=== PATIENT | male | born 1950 | race African-American/Black ===

== ENCOUNTER 2022-11-13 21:25 | Emergency (ER) | payer MEDICAID, OTHER ==
[~2022-11-13] VITALS: Ht 172.7 cm; Wt 104.0 kg
[~2022-11-13 21:25] MED LIST: ALBU2.5V13; FERR1TAB51
[2022-11-13] MEDS ORDERED: METHYLPREDNISOLONE SOD SUCC 125 MG/2 ML VIAL IV STA (21:34)
[2022-11-13] MEDS ORDERED: IPRATROPIUM BROMIDE (0.02%) 0.5MG/2.5ML NEB HHN STA (21:34)
[2022-11-13] MEDS ORDERED: ALBUTEROL (0.083%) 2.5MG/3ML NEB HHN STA (21:34)
[2022-11-13] MEDS ORDERED: LEVOFLOXACIN 750MG PREMIX 150 ML IV ONE (21:45)
[2022-11-13 22:23] LABS: CHLORIDE 102 mEq/L (98-107)
[2022-11-13 22:27] LABS: BASOPHILS % 0.8 % (0.0-2.0); EOSINOPHILS % 4.3 % (0.0-5.0); HEMATOCRIT. 37.9 % (42.0-52.0); HEMOGLOBIN. 12.2 g/dL (14.0-18.0); LYMPHOCYTES % 20.5 % (20.0-50.0); MEAN CORPUSCULAR VOLUME 80.7 fL (80.0-94.0); MEAN PLATELET VOLUME 9.4 fl (7.4-10.4); MONOCYTES % 8.9 % (2.0-8.0); NEUTROPHILS % 65.5 % (40.0-76.0); PLATELET 166 x1000/uL (130-400); RED BLOOD CELL COUNT 4.69 mill/uL (4.7-6.1); RED CELL DISTRIBUTION WIDTH 15.5 % (11.6-14.6)
[2022-11-13 23:04] LABS: PROTHROMBIN TIME 10.9 sec (9.6-11.0)
[2022-11-13 23:42] LABS: BG BASE EXCESS 4.8 mmol/L (-2.0-2.0); BG CARBOXYHEMOGLOBIN 0.6 % (0.5-1.5); BG DEOXYHEMOGLOBIN 11.8 % (0.0-5.0); BG FRACTION INSPIRED OXYGEN 100; BG HCO3 ACT 30.7 mmol/L (22.0-26.0); BG METHEMOGLOBIN 0.2 % (0.0-1.5); BG OXYGEN SATURATION 88.1 % (92.0-98.5); BG OXYHEMOGLOBIN 87.4 % (94.0-97.0); BG PCO2 50.4 mmHg (35.0-45.0); BG PH 7.402 (7.350-7.450); BG PO2 55.2 mmHg (75.0-100.0); BG SAMPLE SITE RIGHT RADIAL; BG TOTAL HEMOGLOBIN 13.2 g/dL (12.0-18.0); BG VENT MODE MASK - BIPAP
[2022-11-14] MEDS ORDERED: ALBUTEROL (0.083%) 2.5MG/3ML NEB HHN NR (01:15)
[2022-11-14] MEDS ORDERED: IPRATROPIUM BROMIDE (0.02%) 0.5MG/2.5ML NEB HHN NR (01:15)
[2022-11-14 02:52] LABS: BG BASE EXCESS 5.7 mmol/L (-2.0-2.0); BG CARBOXYHEMOGLOBIN 0.2 % (0.5-1.5); BG DEOXYHEMOGLOBIN 7.4 % (0.0-5.0); BG FRACTION INSPIRED OXYGEN 36; BG HCO3 ACT 31.5 mmol/L (22.0-26.0); BG METHEMOGLOBIN 0.1 % (0.0-1.5); BG OXYGEN SATURATION 92.6 % (92.0-98.5); BG OXYHEMOGLOBIN 92.3 % (94.0-97.0); BG PCO2 50.7 mmHg (35.0-45.0); BG PH 7.411 (7.350-7.450); BG PO2 64.3 mmHg (75.0-100.0); BG SAMPLE SITE RIGHT RADIAL; BG TOTAL HEMOGLOBIN 12.6 g/dL (12.0-18.0); BG VENT MODE NASAL CANNULA
[2022-11-14 08:30] VITALS: BP 117/79
== END 2022-11-14 08:39 | disposition short-term general hospital (02) ==
LOC: ER 21:25
DX: J44.1 Chronic obstructive pulmonary disease with (acute) exacerbation (principal); Z20.822 Contact with and (suspected) exposure to COVID-19
CPT/HCPCS: 36415; 36600; 71045; 80053; 82375; 82805; 83880; 85025; 85610; 87426; 93005; 94660; 96365; 96375; 99291; C9803; J1956; J2930

== ENCOUNTER 2024-11-24 21:10 | Inpatient (IN) | payer OTHER, MEDICAID ==
[~2024-11-24] VITALS: Ht 180.3 cm; Wt 83.0 kg
[2024-11-24 21:18] VITALS: RESP 17
[2024-11-24] MEDS ORDERED: METHYLPREDNISOLONE SOD SUCC 125MG/2ML (ACT-O-VIAL) IV STA (21:30)
[2024-11-24 21:55] LABS: BASOPHILS % 0.7 % (0.0-2.0); EOSINOPHILS % 4.3 % (0.0-5.0); HEMATOCRIT. 38.8 % (42.0-52.0); HEMOGLOBIN. 12.3 g/dL (14.0-18.0); LYMPHOCYTES % 19.5 % (20.0-50.0); MEAN CORPUSCULAR HGB CONC 31.8 g/dL (31.0-37.0); MEAN CORPUSCULAR VOLUME 81.7 fL (80.0-94.0); MEAN PLATELET VOLUME 8.9 fl (7.4-10.4); MONOCYTES % 8.4 % (2.0-8.0); NEUTROPHILS % 67.1 % (40.0-76.0); PLATELET 127 x1000/uL (130-400); RED BLOOD CELL COUNT 4.75 mill/uL (4.7-6.1); RED CELL DISTRIBUTION WIDTH 14.6 % (11.6-14.6); WHITE BLOOD COUNT 7.5 x1000/uL (4.5-11.0)
[2024-11-24 21:58] VITALS: RESP 18
[2024-11-24] MEDS: ALBUTEROL (0.083%) 2.5MG/3ML NEB HHN STA (21:58)
[2024-11-24] MEDS: IPRATROPIUM BROMIDE (0.02%) 0.5MG/2.5ML NEB HHN STA (21:58)
[2024-11-24 22:06] LABS: CARBON DIOXIDE 33 mEq/L (21-32); CHLORIDE 101 mEq/L (98-107); POTASSIUM 4.2 mEq/L (3.5-5.1); SODIUM 141 mEq/L (136-145)
[2024-11-24 22:07] LABS: CALCIUM 9.4 mg/dL (8.7-10.4)
[2024-11-24 22:12] LABS: ETHANOL BLOOD < 10 mg/dL (<10); GLUCOSE 109 mg/dL (70-105); UREA NITROGEN BLOOD 18 mg/dL (9-23)
[2024-11-24 22:13] LABS: TROPONIN I HIGH SENSITIVITY 5 ng/L (3.0-53)
[2024-11-24] MEDS: METHYLPREDNISOLONE SOD SUCC 125MG/2ML (ACT-O-VIAL) IV NR (23:56)
[2024-11-25] VITALS (8 sets, daily range): BP systolic 103–126; BP diastolic 70–109; PULSE 70–99; RESP 16–21; TEMP 36.4–36.9; O2SAT 96–100
[2024-11-25] MEDS: LEVOFLOXACIN 750MG PREMIX 150 ML IV NR (00:12)
[2024-11-25 02:03] LABS: BG BASE EXCESS 4.3 mmol/L (-2.0-3.0); BG CARBOXYHEMOGLOBIN 0.4 % (0.5-1.5); BG DEOXYHEMOGLOBIN 1.9 % (0.0-5.0); BG FRACTION INSPIRED OXYGEN 50; BG HCO3 ACT 30.7 mmol/L (21.0-28.0); BG METHEMOGLOBIN 0.3 % (0.5-1.5); BG OXYGEN SATURATION 98.1 % (94.0-98.0); BG OXYHEMOGLOBIN 97.4 % (94.0-98.0); BG PCO2 53.5 mmHg (35.0-48.0); BG PH 7.376 (7.350-7.450); BG PO2 109.3 mmHg (83.0-108.0); BG SAMPLE SITE LEFT BRACHIAL; BG TOTAL HEMOGLOBIN 12.4 g/dL (13.5-17.5); BG VENT MODE MASK - BIPAP
[2024-11-25 07:44] LABS: *AMPHETAMINES SCREEN URINE NEGATIVE (NEGATIVE); *BARBITURATES SCREEN URINE NEGATIVE (NEGATIVE); *BENZODIAZEPINES SCREEN URINE NEGATIVE (NEGATIVE); *COCAINE SCREEN URINE NEGATIVE (NEGATIVE); CANNABINOID URINE SCREEN NEGATIVE (NEGATIVE); ECSTASY MDMA SCREEN URINE NEGATIVE (NEGATIVE); METHADONE URINE SCREEN NEGATIVE (NEGATIVE); OPIATES URINE SCREEN PRESUMPTIVE POSITIVE (NEGATIVE); PHENCYCLIDINE URINE SCREEN NEGATIVE (NEGATIVE)
[2024-11-25] MEDS ORDERED: DOCUSATE SODIUM 100MG CAPSULE PO PRN (10:00)
[2024-11-25] MEDS ORDERED: GUAIFENESIN 200MG/10ML SUGAR FREE UDC PO PRN (10:00)
[2024-11-25] MEDS ORDERED: IPRATROPIUM/ALBUTEROL 0.5-3(2.5)MG/3ML NEB HHN PRN (10:00)
[2024-11-25] MEDS ORDERED: MAGNESIUM/ALUMINUM HYDROXIDE/SIMETHICONE 30ML UDC PO PRN (10:00)
[2024-11-25] MEDS ORDERED: CLONIDINE 0.1MG TABLET PO PRN (10:00)
[2024-11-25] MEDS ORDERED: ACETAMINOPHEN 325MG TABLET PO PRN (10:00)
[2024-11-25] MEDS ORDERED: DIPHENHYDRAMINE 50MG/ML VIAL IV PRN (10:00)
[2024-11-25] MEDS ORDERED: ONDANSETRON HCL 4MG/2ML INJ IV PRN (10:00)
[2024-11-25] MEDS: AMLODIPINE 5MG TABLET PO SCH (11:35)
[2024-11-25] MEDS: TAMSULOSIN HCL 0.4MG SR CAPSULE PO SCH (11:36)
[2024-11-25] MEDS: AZITHROMYCIN 500MG/250ML 250 ML IV SCH (11:37)
[2024-11-25] MEDS ORDERED: METHYLPREDNISOLONE SOD SUCC 125MG/2ML (ACT-O-VIAL) IV SCH (14:00)
[2024-11-25] MEDS: IPRATROPIUM/ALBUTEROL 0.5-3(2.5)MG/3ML NEB HHN SCH (14:36)
[2024-11-25] MEDS ORDERED: BUDE10.26 INH (17:01)
[2024-11-25] MEDS ORDERED: AMLO5TAB88 PO (17:01)
[2024-11-25] MEDS ORDERED: ASPI-1497 PO (17:01)
[2024-11-25] MEDS ORDERED: IPRA3AMP31 IH (17:01)
[2024-11-25] MEDS ORDERED: TAMS-54 PO (17:01)
[2024-11-25] MEDS ORDERED: ALBU2.5V13 IH (17:01)
[2024-11-25] MEDS ORDERED: OMEP20CA14 PO (17:01)
[2024-11-25] MEDS ORDERED: ATOR40TA70 PO (17:01)
[2024-11-25] MEDS ORDERED: HYDR-4001 PO (17:01)
[2024-11-25 18:01] LABS: CREATINE KINASE 81 IU/L (46-171)
[2024-11-25 18:09] LABS: TROPONIN I HIGH SENSITIVITY < 4 ng/L (3.0-53)
[2024-11-25] MEDS: PANTOPRAZOLE SODIUM 40 MG/VIAL IV SCH (18:32)
[2024-11-25] MEDS: ATORVASTATIN CALCIUM 40MG TABLET PO SCH (20:26)
[2024-11-25] MEDS: BUDESONIDE 0.5MG/2ML NEB HHN SCH (21:40)
[2024-11-25 23:12] LABS: CREATINE KINASE 79 IU/L (46-171)
[2024-11-25 23:13] LABS: CREATINE KINASE MB FRACTION 2.3 ng/mL (0.5-3.6); TROPONIN I HIGH SENSITIVITY 5 ng/L (3.0-53)
[2024-11-26] VITALS (12 sets, daily range): BP systolic 92–118; BP diastolic 70–100; PULSE 67–95; RESP 14–22; TEMP 36.3–36.6; O2SAT 90–100
[2024-11-26] MEDS: ACETAMINOPHEN 325MG TABLET PO PRN (03:43)
[2024-11-26 06:45] LABS: CARBON DIOXIDE 31 mEq/L (21-32); CHLORIDE 102 mEq/L (98-107); POTASSIUM 3.9 mEq/L (3.5-5.1); SODIUM 141 mEq/L (136-145)
[2024-11-26 06:46] LABS: CALCIUM 9.7 mg/dL (8.7-10.4)
[2024-11-26 06:47] LABS: BASOPHILS % 0.3 % (0.0-2.0); EOSINOPHILS % 1.7 % (0.0-5.0); HEMATOCRIT. 39.5 % (42.0-52.0); HEMOGLOBIN. 12.4 g/dL (14.0-18.0); LYMPHOCYTES % 12.2 % (20.0-50.0); MEAN CORPUSCULAR HEMOGLOBIN 26.1 pg (28.0-32.0); MEAN CORPUSCULAR HGB CONC 31.5 g/dL (31.0-37.0); MEAN CORPUSCULAR VOLUME 82.9 fL (80.0-94.0); MEAN PLATELET VOLUME 9.4 fl (7.4-10.4); MONOCYTES % 10.6 % (2.0-8.0); NEUTROPHILS % 75.2 % (40.0-76.0); PLATELET 121 x1000/uL (130-400); RED BLOOD CELL COUNT 4.76 mill/uL (4.7-6.1); RED CELL DISTRIBUTION WIDTH 14.8 % (11.6-14.6); WHITE BLOOD COUNT 9.2 x1000/uL (4.5-11.0)
[2024-11-26 06:51] LABS: CREATININE 0.8 mg/dL (0.6-1.3); GLUCOSE 103 mg/dL (70-105); TRIGLYCERIDE 46 mg/dL (0-150); UREA NITROGEN BLOOD 16 mg/dL (9-23)
[2024-11-26 06:52] LABS: CHOLESTEROL 119 mg/dL (<200); LDL CHOLESTEROL 52 mg/dL (5-100); T4 FREE 1.04 ng/dL (0.89-1.76)
[2024-11-26 06:53] LABS: HDL CHOLESTEROL 48 mg/dL (>55); THYROID STIMULATING HORMONE 0.93 uIU/mL (0.55-4.78)
[2024-11-26] MEDS: ENOXAPARIN 40MG/0.4ML SYR SUBCUT SCH (09:20)
[2024-11-26] MEDS: ASPIRIN 81MG EC TABLET PO SCH (09:20)
[2024-11-27] MEDS ORDERED: FAMOTIDINE 20MG/2ML VIAL IV SCH (09:00)
[2024-11-27] MEDS ORDERED: AZITHROMYCIN 500 MG TABLET PO SCH (09:00)
== END 2024-11-26 19:19 | disposition short-term general hospital (02) | DRG 189 ==
LOC: ER 21:10 → EDBEDREQSVC 11-25 05:33 → EDBEDREQ 11-25 05:33 → EDBEDREQTM 11-25 05:33 → ENRESERV 11-25 06:17 → 5EST 11-25 08:38
PROVIDERS: ADMIT Internal Medicine; ATTEND Internal Medicine
PROC: 5A09357 Assistance with Respiratory Ventilation, Less than 24 Consecutive Hours, Continuous Positive Airway Pressure (ICD-10-PCS; principal; 2024-11-25)
DX: J96.02 Acute respiratory failure with hypercapnia (principal); J44.1 Chronic obstructive pulmonary disease with (acute) exacerbation; E78.00 Pure hypercholesterolemia, unspecified; J96.01 Acute respiratory failure with hypoxia; I10 Essential (primary) hypertension; N40.0 Benign prostatic hyperplasia without lower urinary tract symptoms; Z85.07 Personal history of malignant neoplasm of pancreas; Z79.899 Other long term (current) drug therapy; Z87.891 Personal history of nicotine dependence; Z99.81 Dependence on supplemental oxygen
CPT/HCPCS: 36415; 36600; 71045; 80048; 80061; 80305; 80320; 82375; 82550; 82553; 82805; 83880; 84439; 84443; 84484; 85025; 85379; 93005; 94070; 94640; 94660; 94664; 94760; 99285; J0456; J1650; J1956; J2470; J2919; J7626; G0480